=== PATIENT | female | born 1965 | race Caucasian/White ===

== ENCOUNTER 2020-08-02 21:37 | Emergency (ER) | payer MEDICAID ==
[~2020-08-02] VITALS: Ht 167.6 cm; Wt 87.1 kg
--- NOTE | 2020-08-02 21:55 | NUR ---
PT BIBA FROM HOME C/O R FLANK PAIN X 2 HOURS INS[employer]OR [employer]. PT DENIES N/V/D. PT AAOX4, VSS, RESPIRATIONS EVEN AND UNLABORED ON RA W/ NAD NOTED. PT CONNECTED TO THE COMMUNICATIONS ADVISOR AND POX
--- NOTE | 2020-08-02 22:18 | NUR ---
DR MENA AT BEDSIDE FOR EVAL
[2020-08-02 22:24] LABS: BASOPHILS # (AUTO) 0.1 /CMM (0.0-0.2); BASOPHILS % (AUTO) 0.7 % (0.0-2.0); EOSINOPHILS % (AUTO) 0.1 % (0.0-6.0); HEMATOCRIT 41 % (33-45); HEMOGLOBIN 13.6 g/dL (11.5-14.8); LYMPHOCYTES # (AUTO) 1.2 /CMM (0.8-4.8); LYMPHOCYTES % (AUTO) 10.6 % (20.0-44.0); MEAN CORPUSCULAR HGB CONC 33 g/dl (31.0-36.0); MEAN CORPUSCULAR VOLUME 91 fL (82-100); MONOCYTES # (AUTO) 0.5 /CMM (0.1-1.30); MONOCYTES % (AUTO) 4.3 % (2.0-12.0); NEUTROPHILS # (AUTO) 9.4 /CMM (1.8-8.9); NEUTROPHILS % (AUTO) 84.3 % (43.0-81.0); PLATELET COUNT (AUTO) 231 /CMM (150-450); RED BLOOD CELL COUNT(AUTO) 4.47 MIL/uL (4.0-5.2); WHITE BLOOD COUNT (AUTO) 11.1 K/uL (4.3-11.0)
[2020-08-02] MEDS ORDERED: KETOROLAC TROMETHAMINE 15 MG/ML VIAL ONE (22:25)
[2020-08-02] MEDS ORDERED: ONDANSETRON HCL/PF 4 MG/2 ML VIAL ONE (22:26)
[2020-08-02 22:29] LABS: BILIRUBIN,URINE NEGATIVE (NEGATIVE); BLOOD, URINE MODERATE Ery/uL (NEGATIVE); COLOR,URINE YELLOW (YELLOW); LEUKOCYTE ESTERASE ,URINE LARGE (NEGATIVE); NITRITE, URINE NEGATIVE (NEGATIVE); PH,URINE 5.5 (5.0-8.0); PROTEIN,URINE NEGATIVE (NEGATIVE); UGLUCOSE NEGATIVE (NEGATIVE); UROBILINOGEN,URINE 0.2 EU/dL (0.2)
[2020-08-02] MEDS ORDERED: ONDANSETRON HCL/PF 4 MG/2 ML VIAL IV ONE (22:30)
[2020-08-02] MEDS ORDERED: IV NS 0.9% 1,000 ML IV ONE (22:30)
[2020-08-02] MEDS ORDERED: KETOROLAC TROMETHAMINE INJ 30 MG/ML VIAL IV ONE (22:30)
[2020-08-02 22:36] LABS: BACTERIA,URINE 2+ /HPF (None Seen); SQUAMOUS EPITHELIAL CELL,UR 0-2 /HPF (None Seen)
[2020-08-02 22:39] LABS: ALBUMIN 3.8 g/dL (3.4-5.0); BILIRUBIN,DIRECT 0.1 mg/dL (0.0-0.2); BILIRUBIN,TOTAL 0.2 mg/dL (0.2-1.0); CALCIUM, SERUM 8.9 mg/dL (8.5-10.1); CREATININE 0.8 mg/dL (0.6-1.3); POTASSIUM 3.9 mmol/L (3.5-5.1); TOTAL PROTEIN, SERUM 8.6 g/dL (6.4-8.2)
--- NOTE | 2020-08-02 22:54 | NUR ---
ULTRASOUND AT BEDSIDE
[2020-08-02] MEDS ORDERED: CEFTRIAXONE 1GM BAG (ER ONLY) 50 ML IV ONE (23:13)
[2020-08-02] MEDS ORDERED: CEFTRIAXONE 1 G in IV D5W 50 ML IV ONE (23:30)
[2020-08-02] MEDS ORDERED: FENTANYL PF 100MCG/2ML AMPUL IV ONE (23:30)
[2020-08-02] MEDS ORDERED: FENTANYL PF 100MCG/2ML AMPUL ONE (23:43)
[2020-08-03 00:24] VITALS: BP 136/84
--- NOTE | 2020-08-03 00:24 | NUR ---
Patient discharged to home in stable condition. Written and verbal after care instructions given. Patient verbalizes understanding of instruction.IV removed. Catheter intact and site benign. Pressure and 4x4 applied to site. No bleeding noted.
== END 2020-08-03 00:25 | disposition home or self-care (01) ==
LOC: ER 21:40
DX: N23 Unspecified renal colic (principal); N39.0 Urinary tract infection, site not specified
CPT/HCPCS: 36415; 76705; 80048; 80076; 81001; 83690; 85025; 96361; 96365; 96375; 99284; J0696; J1885; J2405; J3010; J7030; 87086-TC

== ENCOUNTER 2020-12-28 09:17 | Emergency (ER) | payer SELFPAY ==
[~2020-12-28] VITALS: Ht 167.6 cm; Wt 82.6 kg
[2020-12-28 09:47] VITALS: BP 165/101
[2020-12-28] MEDS ORDERED: IBUP-1957 PO (10:53)
--- NOTE | 2020-12-28 10:57 | NUR ---
Patient awake alert non distress placed Rt sling by EMT .
--- NOTE | 2020-12-28 11:30 | NUR ---
Patient discharged to home in stable condition. Written and verbal after care instructions given. Patient verbalizes understanding of instruction.
== END 2020-12-28 11:34 | disposition home or self-care (01) ==
LOC: ER 09:37
DX: M25.511 Pain in right shoulder (principal); I10 Essential (primary) hypertension; Z87.442 Personal history of urinary calculi; Z79.899 Other long term (current) drug therapy
CPT/HCPCS: 73030-TC

== ENCOUNTER 2021-11-29 08:16 | Emergency (ER) | payer SELFPAY ==
[~2021-11-29] VITALS: Ht 167.6 cm; Wt 82.6 kg
[~2021-11-29 08:16] MED LIST: IBUP-1957 PO
--- NOTE | 2021-11-29 08:20 | NUR ---
TO ER BED 9. BIB SELF C/O L SIDED NECK PAIN X 7 DAYS. SEEN IN URGENT CARE LAST WED NO IMPROVEMENT.
--- NOTE | 2021-11-29 08:44 | NUR ---
PT SEEN AND EXAMINED BY .
[2021-11-29] MEDS ORDERED: oxyCODONE/APAP (5/325 MG) 1 UDTAB TABLET ONE (08:49)
[2021-11-29] MEDS ORDERED: IBUPROFEN 600 MG TABLET ONE (08:49)
[2021-11-29] MEDS ORDERED: IBUPROFEN 600 MG TABLET PO ONE (09:00)
[2021-11-29] MEDS ORDERED: oxyCODONE/APAP (5/325 MG) 1 UDTAB TABLET PO ONE (09:00)
--- NOTE | 2021-11-29 09:00 | NUR ---
PT REFUSED CT SCAN, AWARE.
[2021-11-29] MEDS ORDERED: OXYC-128 PO (09:39)
--- NOTE | 2021-11-29 09:43 | NUR ---
Patient discharged to home in stable condition. Written and verbal after care instructions given. Patient verbalizes understanding of instruction.
[2021-11-29 09:45] VITALS: BP 162/102
== END 2021-11-29 09:45 | disposition home or self-care (01) ==
LOC: ER 08:18
DX: M54.2 Cervicalgia (principal); I10 Essential (primary) hypertension